=== PATIENT | male | born 1975 | race African-American/Black ===

== ENCOUNTER 2020-09-24 08:04 | Emergency (ER) | payer SELFPAY ==
[~2020-09-24] VITALS: Ht 167.6 cm; Wt 81.8 kg
[2020-09-24] MEDS ORDERED: IV NORMAL SALINE 1000ML BAG 1,000 ML IV ONE (08:15)
--- NOTE | 2020-09-24 09:11 | PHYS DOC ---
Past Medical History Past Medical History: No Pertinent History, High Cholesterol, Hypertension, Other Past Surgical History: No Surgical History, Other Additional Past Surgical Histo: UNKNOWN - POOR HISTORIAN RIGHT NOW Smoking Status: Never Smoker Alcohol Use: Occasionally Drug Use: Marijuana General Adult EDM: Chief Complaint: SEIZURE HPI: HPI: Patient is a 45 year old male who presents via EMS after a witnessed seizure. The history was obtained mostly from EMS and the pt girlfriend who is present in the room, due to postictal state. The pt was reportedly laying in bed sleeping when he woke his girlfriend with "jerking and foaming from the mouth". Pt has no history of seizures and no known medical problems. He does not take any medications, or use recreational drugs or alcohol. BG on scene from EMS was 110, urine was present on pt clothes and laceration was present on his tongue. Pt was alert and oriented to self but not place or time. He had no other complaints at this time. After several hrs pt was no longer postictal and could participate with further hx and exam. He stated he got home from work last night/early this morning and was playing video games, that was the last thing he remembered before waking up in our emergency department. He is now A&O x4, denies any current headache, n ausea, or pain. Review of Systems: Review of Systems: Constitutional: Denies fever or chills Eyes: Denies redness or eye pain HENT: Denies nasal congestion or sore throat Respiratory: Denies cough or shortness of breath Cardiovascular: Denies chest pain or palpitations GI: Denies abdominal pain, nausea, or vomiting : Denies dysuria or hematuria Musculoskeletal: Denies back pain or joint pain Integument: Denies rash or skin lesions Neurologic: Denies headache, focal weakness or sensory changes Complete systems were reviewed and found to be within normal limits, except as documented in this note. Current Medications: Current Medications Medications (Trade) Dose Ordered Sig/Catherine Start Time Stop Time Status Last Admin Dose Admin Sodium Chloride 1,000 ml @ 1,000 mls/hr 1X ONCE 09/24/20 08:15 09/24/20 09:14 Allergies: Allergies: Allergies Coded Allergies Type Severity Reaction Last Updated Verified No Known Drug Allergies 09/24/20 No Physical Exam: PE: Constitutional: Well developed, well nourished, no acute distress, non-toxic appearance HENT: Normocephalic, atraumatic, laceration present on left side of tongue. Eyes: PERRL, EOMI, conjunctiva normal, no discharge Neck: Normal range of motion, no tenderness, supple Lungs & Thorax: No respiratory distress, equal chest rise and fall Abdomen: Soft, no tenderness, Skin: Warm, dry, no erythema, no rash Back: No tenderness, no CVA tenderness Extremities: No tenderness, ROM intact, no edema, presence of urine on pt underwear Neurologic: Alert and oriented X 3, normal motor function, normal sensory function, no focal deficits noted Psychologic: Affect consistent with postictal state, normal affect after being in ED for a few hrs. Current Patient Data: Vital Signs: Vital Signs Date Time Temp Pulse Resp B/P (MAP) Pulse Ox O2 Delivery O2 Flow Rate FiO2 09/24/20 08:06 98.2 87 12 173/110 (131) 96 Room Air 98.2 EKG: EKG: Normal sinus rhythm at [address] elevation. QRS- 100 QT/QTc- 398/428. Radiology/Procedures: Radiology/Procedures: PROCEDURE: CT HEAD WO CONTRAST CT HEAD/BRAIN WO Date: 09/24/2020 8:47 AM Clinical Indication: Reason: seizure like activity / Spl. Instructions: / History: Comparison: None. Technique: 5 mm axial tomographic images were obtained of the head without contrast. These were viewed on brain and bone windows. One or more of the following dose reduction techniques were utilized: Automated exposure control (AEC), Adjustment of mA and/or kV according to patient size, Use of iterative reconstruction technique such as ASiR, CT scan done according to ALARA and image gently/image wisely Findings: The brain parenchyma is normal in attenuation. No intra- or extra-axial mass or fluid collection. No acute hemorrhage. The ventricles are normal in size, shape, and morphology. The simon-white matter junction is normal. The subarachnoid cisterns are patent. The visualized paranasal sinuses are normal. The visualized portions of the orbits and globes are normal. The mastoid air cells are clear. 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 Impression: No acute intracranial process. Electronically signed by: Tevin Siddiqui MD (09/24/2020 9:09 AM) [id number] Course & Med Decision Making: Course & Med Decision Making Pertinent Labs and Imaging studies reviewed. (See chart for details) Pt is a 45 yo male who presents via EMS after a witnessed seizure-like activity. Blood glucose was 110 via EMS. Labs were drawn to assess for blood counts and electrolyte abnormalities. Due to his lack of previous seizures, it was necessary to also get a head CT, which was without hemorrhage or space occupying lesions. His labs were unremarkable for electrolyte abnormalities that would cause a seizure. We discussed the possible causes of a first time seizure including etoh withdraw, drug use, tumor or brain bleed, electrolyte abnormalities, or trauma- none of which seem to have caused his seizure. We also discussed that not all pt will have a known etiology after a seizure, but follow up with a neurologist outpt can explore this further. He has agreed to follow up outpt with the neurologist I provided him information for. He does have a hx of hypertension and has not been taking his medication for it for over a year. His pressure while here was originally very high 200s/120s, so we started him on clonidine. He was asymptomatic without headache and a normal neuro exam. His HTN was responsive to the clondine and decreased to 180s/100 before discharge. I have sent him home with clonidine to take for HTN until he can f/u with his PCP. I have emphasized to him the extreme importance of the [facility] effects of hypertension. He has agreed to follow up with his PCP to be restarted on a full needlemaker hypertension regimen. Casa Disclaimer: Casa Disclaimer: This electronic medical record was generated, in whole or in part, using a voice recognition dictation system. Departure Departure Impression: Primary Impression: Seizure-like activity Additional Impression: Hypertension Qualified Codes: I10 - Essential (primary) hypertension Disposition: DC HOME SELF CARE/HOMELESS Condition: STABLE Referrals: LAKEISHA CARDONA MD Patient Instructions: Hypertension, [id number], Seizure, Adult, [id number] Scripts Clonidine Hcl (CLONIDINE HCL) 0.1 Mg Tablet 0.1 MG PO BID, #30 TAB Prov: HERO BENJAMIN DO 09/24/20 HERO BENJAMIN DO Sep 24, 2020 09:10
--- NOTE | 2020-09-24 09:12 | RAD ---
CT HEAD/BRAIN WO Date: 09/24/2020 8:47 AM Clinical Indication: Reason: seizure like activity / Spl. Instructions: / History: Comparison: None. Technique: 5 mm axial tomographic images were obtained of the head without contrast. These were view ed on brain and bone windows. One or more of the following dose reduction techniques were utilized: A utomated exposure control (AEC), Adjustment of mA and/or kV according to patient size, Use of iterati ve reconstruction technique such as ASiR, CT scan done according to ALARA and image gently/image disla ly Findings: The brain parenchyma is normal in attenuation. No intra- or extra-axial mass or fluid collection. No acute hemorrhage. The ventricles are normal in size, shape, and morphology. The simon-white matter henrry ction is normal. The subarachnoid cisterns are patent. The visualized paranasal sinuses are normal. The visualized portions of the orbits and globes are no rmal. The mastoid air cells are clear. 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 Impression: No acute intracranial process. Electronically signed by: Tevin Siddiqui MD (09/24/2020 9:09 AM) [id number]
[2020-09-24 09:43] LABS: BASO # 0.1 x10^3/uL (0.0-0.2); BASO % 1 % (0-3); EOS # 0.1 x10^3/uL (0.0-0.7); EOS % 1 % (0-3); HEMATOCRIT 44.8 % (39.0-53.0); HEMOGLOBIN 14.5 g/dL (13.0-17.5); LYMPH # 1.6 x10^3/uL (1.0-4.8); LYMPH % 15 % (24-48); MEAN CORPUSCULAR HEMOGLOBIN 30 pg (25-35); MEAN CORPUSCULAR HGB CONC 32 g/dL (31-37); MEAN CORPUSCULAR VOLUME 94 fL (79-100); MONO # 0.9 x10^3/uL (0.0-1.1); MONO % 9 % (0-9); NEUT # 7.7 x10^3/uL (1.8-7.7); NEUT % 75 % (31-73); PLATELET COUNT 224 x10^3/uL (140-400); RED BLOOD COUNT 4.76 x10^6/uL (4.30-5.70); RED CELL DISTRIBUTION WIDTH 13.9 % (11.5-14.5); WHITE BLOOD COUNT 10.4 x10^3/uL (4.0-11.0)
[2020-09-24 09:52] LABS: CALCIUM 9.1 mg/dL (8.5-10.1); CREATININE 1.2 mg/dL (0.7-1.3); POTASSIUM 3.7 mmol/L (3.5-5.1)
[2020-09-24 10:02] LABS: ALBUMIN 3.5 g/dL (3.4-5.0); MAGNESIUM 2.2 mg/dL (1.8-2.4); TOTAL BILIRUBIN 0.3 mg/dL (0.2-1.0); TOTAL PROTEIN 7.1 g/dL (6.4-8.2)
[2020-09-24 10:05] LABS: BILIRUBIN,URINE NEGATIVE (NEG); CLARITY,URINE CLEAR; COLOR,URINE YELLOW; NITRITE,URINE NEGATIVE (NEG); PROTEIN,URINE 100 mg/dL (NEG-TRACE); UROBILINOGEN,URINE 0.2 mg/dL (0.2 mg/dL)
[2020-09-24 10:16] LABS: BARBITURATES NEG (NEG); BENZODIAZEPINES NEG (NEG); CANNABINOIDS POS (NEG); COCAINE NEG (NEG); METHADONE NEG (NEG); OPIATES NEG (NEG); PHENCYCLIDINE NEG (NEG)
[2020-09-24 10:17] LABS: AMPHETAMINE/METHAMPHETAMINE NEG (NEG)
[2020-09-24 10:34] LABS: BACTERIA,URINE 0 /HPF (0-FEW); RBC,URINE 0 /HPF (0-2); SPERM,URINE PRESENT /HPF
[2020-09-24] MEDS ORDERED: cloNIDine HCL 0.1 MG TABLET PO ONE (11:45)
[2020-09-24] MEDS ORDERED: hydrALAZINE 20 MG/ML VIAL. IVP ONE (11:45)
[2020-09-24] MEDS ORDERED: CLON0.1T PO (13:26)
[2020-09-24 13:40] VITALS: BP 189/110
--- NOTE | 2020-09-25 18:29 | EKG ---
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
== END 2020-09-24 14:01 | disposition home or self-care (01) ==
LOC: ER 08:04
DX: R56.9 Unspecified convulsions (principal); I10 Essential (primary) hypertension; E78.00 Pure hypercholesterolemia, unspecified; F12.90 Cannabis use, unspecified, uncomplicated; Z98.890 Other specified postprocedural states
CPT/HCPCS: 36415; 70450; 80053; 80307; 81001; 82553; 83605; 83735; 84484; 85025; 93005; 96361; 96374; 99285; G0480; J0360; J7030